=== PATIENT | female | born 1970 | race Caucasian/White ===

== ENCOUNTER 2016-09-06 23:50 | Inpatient (IN) | payer MEDICARE ==
--- NOTE | ~2016-09-06 | CO ---
Unit #: [id number] #: [id number] Patient: SHELDON CORDERO [id number] [address] [address] [id number] I MR#: [id number] NAME: SHELDON CORDERO ROOM: 201 Age: 45 Sex: F Admission Date: 09/07/2016 : 1970 Attending Physician: Juli Ojeda M.D. Primary Care Physician: No Primary Care Physician Consultation Date: 09/07/2016 CONSULTATION REPORT REASON FOR CONSULT Diabetic ketoacidosis. HISTORY OF PRESENT ILLNESS This is a 45-year-old female with history of type 1 diabetes mellitus for several years and history of diabetic ketoacidosis in the past. The patient reports that she has not been feeling well over the last one week, complaining of some cold symptoms and upper respiratory tract infection, possible flu. Blood sugars were running high. The patient reports she developed nausea, vomiting and unable to eat anything. She came to the emergency room where she was found to be in diabetic ketoacidosis and very tachycardic. She was started on IV fluids and insulin drip and transferred to the unit bed where the patient is currently on an insulin drip. PAST MEDICAL HISTORY 1. Type 1 diabetes mellitus, poorly controlled. 2. Diabetic peripheral neuropathy. 3. History of diabetic gastroparesis. 4. History of tobacco use. 5. Hypertension. 6. Hyperlipidemia. 7. Depression. PAST SURGICAL HISTORY Tubal ligation. MEDICATIONS 1. Levemir 20 units b.i.d. 2. NovoLog 1 unit for every 15 grams carbohydrate with meals. 3. Reglan. 4. Gabapentin. ALLERGIES Toradol, morphine. FAMILY HISTORY Negative for diabetes. SOCIAL HISTORY Smokes half pack per day. Declines alcohol or illicit drugs. REVIEW OF SYSTEMS A 12-point review of systems completed. Is remarkable for some nausea. Declines any fever, sore throat, urgency, frequency, dysuria. Please see Unit #: [id number] #: [id number] Patient: SHELDON CORDERO HPI. PHYSICAL EXAMINATION GENERAL: She is awake, alert, oriented to time, place and person. VITAL SIGNS: Her vitals are stable. Temp is 98.2, pulse 93, respirations 16, blood pressure 111/67. HEENT: EOMI. Pupils equally react to light. NECK: Supple. No thyromegaly noted. CHEST: Good air entry. No wheezing. CVS: Regular rhythm. S1 and S2. No murmurs. ABDOMEN: Soft. Nontender. Nondistended. Bowel sounds positive. EXTREMITIES: No edema, ulcers or amputations noted. NEUROLOGIC: Nonfocal. Moving all extremities. SKIN: Normal. DIAGNOSTIC STUDIES CURRENT LABS: BUN and creatinine is within normal limits. Anion gap is normal. Sodium 135. A1C is 8. ASSESSMENT 1. Diabetic ketoacidosis, which is resolved or improving. 2. Type 1 diabetes mellitus, seems to be reasonably controlled at home with A1C of 8%. 3. Insulin dependence. PLAN Will discontinue insulin drip at this point. Will start the patient on Levemir 15 units. Will give 20 units subcu one dose now, then start 15 unit subcu b.i.d. Start NovoLog 1 unit for every 50 over 150. Accu-Cheks a.c. and h.s. Advance diet as tolerated with consistent carb diet with 45 to 60 grams per meal. Thanks again for consultation. Dictated by... Nan Pat/alberto TD: 09/08/2016 10:43 JOB #: [id number] CONSULTATION REPORT X Arei Swift MD X CONSULTATION REPORT
--- NOTE | ~2016-09-06 | DS ---
Unit #: [id number] #: [id number] Patient: SHELDON CORDERO [id number] [address] [address] [id number] I MR#: [id number] NAME: SHELDON CORDERO ROOM: 201 Age: 45 Sex: F Admission Date: 09/07/2016 : 1970 Discharge Date: 09/08/2016 Attending Physician: Juli Ojeda M.D. Primary Care Physician: Primary Care Physician No DISCHARGE SUMMARY DISCHARGE DIAGNOSES 1. Recurrent diabetic ketoacidosis due to noncompliance due to financial barrier. 2. Type 1 diabetes diagnosed at the age of [age] years old. 3. Resolved hypokalemia. 4. Polycythemia due to dehydration. 5. Diabetic peripheral neuropathy. 6. Diabetic gastroparesis. 7. History of essential hypertension. Blood pressure has been stable without any antihypertensive usage. 8. History of depression currently without homicidal or suicidal ideation. 9. Chart review reveals that she has dyslipidemia. Not on statin therapy at this time. 10. Transaminitis. PROCEDURES None. CONSULTANTS Arie Swift M.D. with Endocrinology and Kemar Ulloa M.D. of Pulmonary. DIAGNOSTIC STUDIES IMAGING STUDIES: The patient had a chest x-ray on 09/07/2016, impression, no acute cardiopulmonary findings. LABORATORY RESULTS: The patient's BMP with glucose of 98, BUN 13, creatinine 0.7, sodium 132, potassium 3.7, chloride 106, CO2 of 22, calcium 7.7, phosphorus 2.1, albumin 4.3, total protein 8.6, total bilirubin is 2.0, AST 53, ALT 51. CBC with WBC 10.3, RBC 5.57, hemoglobin 17.3, hematocrit 52.5, MCV is 94.3, MCH 31.0, MCHC 33.9, RDW is 14.1, platelets 334, MPV is 8.2. HOSPITAL COURSE The patient is a 45-year-old female with past medical history of diabetes with recurrent admissions for diabetic ketoacidosis due to noncompliance due to financial barriers who presents to the emergency department due to nausea and vomiting. The patient had significant nausea and emesis at the time of evaluation and was not able to provide much history. The patient is only able to say that she has pain in the mid part of her stomach. She had noticed a high blood sugar that prior to hospitalization, but I am unsure how as that she has no glucometer at home. The patient had also started to complain of intractable nausea, vomiting, abdominal pain. She Unit #: [id number] #: [id number] Patient: SHELDON CORDERO states that she takes her insulin on the day of admission, but was not able to say what her usual blood sugar is at home. The patient did have significant polydipsia and polyuria. She had denied chest pain, shortness of breath. Denied fever or any sick contact. The patient tells me that she has medicare due to diabetes, does not home due to that she is not able to afford it. She typically is only able to get insulin filled when it is written and filled at [facility] for 5 dollars, but does not have any followup with any primary care physician to continue providing for insulin thereon after. She tells me that she only gets insulin the only way she knows by coming to the hospital. The patient was admitted under acidosis where her pH was noted to be 7.137 and her glucose was 624. She was placed on an insulin drip and was admitted to ICU. Dr. Ulloa had seen her in consultation for critical care and Dr. Swift had seen her for uncontrolled diabetes. After less than 24 hours, the patient's blood sugar had been well controlled with insulin drip and was seen by Dr. Swift who started her on subcutaneous insulin and sliding scale insulin according to amount of carbs eaten. She had tolerated clear liquids well and at that time of my assessment, she had in a regular. She still has persistent nausea, but had resolved the vomiting for more than 24 hours. It was felt the patient is stable at this time for discharge. The patient was seen in consultation with clinical social work aide and spring encaser for financial barrier to her insulin usage. I am asking [facility] to come out to educate the patient on diabetic education. She will follow up with Dr. Morales, this is arranged on materials planner on 09/15/2016 at 1:00 p.m. and she is to see Dr. Swift in 3 to 4 weeks for hopefully with now primary care physician and she can have somebody to prescribe insulin and hopefully she will be compliant too with this. DISCHARGE CONDITION Stable. DISCHARGE DIET Consistent carb diet per the diabetes recommendation, 45 mg of carb per meal. ACTIVITIES Resume activities as was prior to hospitalization with ambulating everyday as tolerated. DISCHARGE MEDICATIONS Include gabapentin 300 mg orally reducing it to q.h.s. only as she has not been taking this at all and she can have this adjusted by Dr. Morales when she sees him outpatient, nicotine patch 21 mg transdermally that she can get this over the counter, insulin Levemir 15 units subcutaneously at bedtime and to hold if blood pressure less than 150, NovoLog subcutaneously prior to meals and at bedtime with 1 unit per 15 mg of carbs, Reglan 10 mg orally prior to meals and at bedtime. Prescriptions given for 2 weeks. She will continue with the [id number] diabetic multivitamin 1 capsule orally daily. Given her prescriptions for Zofran 4 mg orally every 6 hours as needed for nausea, vomiting . RECOMMENDATION Follow up with Dr. Morales to recheck her liver enzymes as she has transaminitis. I presume that this is secondary to dehydration, but she can have this reassessed with Dr. Morales and work this as outpatient. Unit #: [id number] #: [id number] Patient: SHELDON CORDERO Dictated by.Heydi. Randy Conrad PA-C for Nan Colon/melani TD: 09/10/2016 01:51 JOB #: [id number] DISCHARGE SUMMARY X X DISCHARGE SUMMARY
--- NOTE | ~2016-09-06 | DS ---
Unit #: [id number] #: [id number] Patient: SHELDON CORDERO [id number] [address] [address] [id number] I MR#: [id number] NAME: SHELDON CORDERO ROOM: 201 Age: 45 Sex: F Admission Date: 09/07/2016 : 1970 Discharge Date: 09/08/2016 Attending Physician: Juli Ojeda M.D. Primary Care Physician: Primary Care Physician No DISCHARGE SUMMARY ADDENDUM This is Randy Conrad PA-C dictating for Dr. Juli Ojeda. The patient was seen by me and discharged, was also seen by social work msw, had been set up for followup with primary care physician to ensure that she would have somebody for continuing insulin usage, but prior to getting her discharge instructions and discharge medications, her IV pain medicine was discontinued. Therefore, she left prior to getting any of her pain medicine and prior to getting her prescriptions. The patient simply say that she did not want to wait for these things and left without being actually discharged by the nurse. Dictated by... Randy Conrad PA-C for Nan Colon/melani TD: 09/11/2016 01:42 JOB #: [id number] DISCHARGE SUMMARY X X DISCHARGE SUMMARY
--- NOTE | ~2016-09-06 | A ---
[facility] DATE: 09/07/16 Patient: SHELDON CORDERO Physician: WANDA Address: [address] Room/Bed: [address], Zip: [place] [address] Admit Date: 09/07/16 Date of : [birth year] Height: 5 8 Weight: 136 62 NUTRITIONAL ASSESSMENT: REASON: Dx Admitting Dx: 45 y/o female admitted with DKA PMH: T1DM, DKA, medical non-compliance, depression, gastroparesis, HTN, HLD, peripheral neuropathy Anthropometrics: Ht: 68", Wt: 62 kg (136 lbs), BMI: 20 (normal) Labs: Na 130, K+ 7.0, Glucose 624, AST 53, ALT 51, A1C 8.0, GFR 51.9 Meds: PPI, Reglan, IVF, insulin drip, Novolin, D5, Phenergan/zofran I/O & Bowel function: LBM 09/05 Skin Integrity: Scars/tattoo noted, trace edema BLE/hands Assessment: Chart reviewed, events noted. RD assessing due to admitting dx as stated above, see PMH. Patient also has hx at [facility]. She is on room air in ICU, NPO while on insulin drip, glucose still in 600's at this time. RD previously assessed on 06/07/13 (patient had no diet questions), 11/25/15 (RD educated) and 03/09/16 (RD educated) for DKA. Patient is sleeping at time of visit to room, did not want to wake at this time. Has hx of DKA and medical non-compliance, may not be appropriate for further education but will attempt at follow-up. See RD recs below, will follow. Dx: Altered nutrition related lab values r/t medical non-compliance AEB glucose 624, A1C 8.0, DKA. Intervention: CC diet, Glucerna? Diet education? Monitoring, Evaluation and Goals: 1. Tolerance of diet advancement with minimal c/o N/V/D. 2. Prevent unintentional weight loss. 3. Improvement in lab values (glucose, lytes, AST, ALT). Monitor: Per protocol, criteria to determine if above goals met Recommendations: 1. Once medically appropriate advance PO diet to consistent carb diet. Encourage adequate [facility] DATE: 09/07/16 Patient: SHELDON CORDERO Physician: WANDA Address: [address] Room/Bed: [address] [place] [address], Zip: [place] [address] Admit Date: 09/07/16 Date of : [birth year] Height: 5 8 Weight: 136 62 oral intake, order Glucerna BID if PO intake is < 50% of meals. Control N/V prn. 2. Optimize insulin regimen to promote adequate glucose control, monitor lytes. Fluids per MD noting hyponatremia. 3. RD has provided diet education in the past, last education given on 03/09/16. Patient has hx of non-compliance but will re-offer education at follow up. RD will follow hospital course Mild-moderate nutrition risk Respectfully, Tala Bashir, ISIS, LD [employer] [facility] cc: client file
--- NOTE | ~2016-09-06 | CO ---
Unit #: [id number] #: [id number] Patient: SHELDON CORDERO [id number] [address] [place], [place] [address] [id number] I MR#: [id number] NAME: SHELDON CORDERO ROOM: 201 Age: 45 Sex: F Admission Date: 09/07/2016 : 1970 Attending Physician: Juli Ojeda M.D. Primary Care Physician: Primary Care Physician No Consultation Date: 09/07/2016 CONSULTATION REPORT REASON FOR CONSULTATION DKA, ICU. HISTORY OF PRESENT ILLNESS A 45-year-old female with diabetes and multiple episodes of DKA, was at home and developed nausea and vomiting on Wednesday. She had no known sick contacts. She had worsening nausea and vomiting, presents to the emergency room, and was found to be in DKA. She had multiple electrolyte abnormalities associated with DKA and has been placed in the ICU on insulin drip. She does feel somewhat better, but still has some mild nausea and abdominal discomfort. She had no hematemesis, melena, or hematochezia. There has been no fever. PAST MEDICAL HISTORY Remarkable for diabetes, multiple episodes of DKA, history of neuropathy, history of gastroparesis, history of hypertension, hyperlipidemia, and depression. MEDICATIONS Apparently are gabapentin, Reglan, Levemir, NovoLog insulins, and a multivitamin. She did have an insulin pump, but she states that she could not afford the tubing and she is not on an insulin pump now. ALLERGIES Morphine and Toradol. SOCIAL HISTORY She smokes. The HR said half to one pack of cigarettes a day. She told me one cigarette a day. She does not drink alcohol and does not do recreational drugs. FAMILY HISTORY No familial lung disease. REVIEW OF SYSTEMS Denies shortness of breath, wheezing, chest pain, palpitations, hematuria, dysuria, focal weakness, paresthesias, fever, chills, weight loss. Further review of systems negative or as above. PHYSICAL EXAMINATION GENERAL: Reveals a patient, who appears comfortable. VITAL SIGNS: She is afebrile. Pulse is 117, respiratory rate is 26, blood pressure is 131/72, 5 foot 8 inches, 136 pounds. HEENT: Pupils are equal, round, and reactive to light. Sclerae Unit #: [id number] #: [id number] Patient: SHELDON CORDERO anicteric. Head atraumatic. NECK: Supple. No supraclavicular or cervical adenopathy appreciated. Mucous membranes moist. CHEST: Equal breath sounds and clear. No wheeze or stridor. CARDIAC: Reveals a tachycardia, mild regular rate and rhythm. No murmur. ABDOMEN: Soft, diffusely tender. No rebound. EXTREMITIES: Reveal no clubbing, cyanosis, or edema. No calf tenderness. SKIN: Warm and dry without rash or diaphoresis. Few mild excoriations in a nonspecific pattern. NEUROLOGIC: Grossly intact. No focal motor or sensory deficits. DIAGNOSTIC STUDIES LABORATORY RESULTS: Arterial blood gas; pH is 7.13, pCO2 of 21, PO2 of 118 that was on room air. Her BUN 23, creatinine is 1.2, glucose is 624. Sodium is 130, potassium is 7.0. Hemoglobin A1c is 8. LFTs mild elevation, BHOB 5.02. White blood cell count 10, hemoglobin is 17.3, platelet count is 334. Urinalysis; glucosuria. Blood cultures performed and are pending. IMAGING STUDIES: Chest x-ray, no acute infiltrates. Prominent nipple shadows. CARDIOVASCULAR STUDIES: Rhythm strip, sinus tachycardia. IMPRESSION 1. Diabetic ketoacidosis with hyperglycemia, hyponatremia etc. 2. Nausea and vomiting, likely secondary to diabetic ketoacidosis. 3. Gastroparesis, possible some degree of gastritis. 4. Polycythemia likely secondary to volume depletion and hemoconcentration. 5. History of neuropathy. 6. History of hypertension, hyperlipidemia etc. PLAN Labs are due to be rechecked. Appropriate treatment of electrolyte abnormalities pending results. Continue insulin and IV fluids. Symptomatic treatment for her nausea and vomiting. Proton pump inhibition, antiemetics, and I will add Reglan IV until taking p.o. I suspect her nausea will improve as treatment of her diabetic ketoacidosis improves. Certainly, no smoking is a great benefit. Dictated by... Kemar Ulloa M.D. SUSHMA/melani TD: 09/07/2016 11:37 JOB #: [id number] Unit #: [id number] #: [id number] Patient: SHELDON CORDERO CONSULTATION REPORT X Kemar Ulloa MD CONSULTATION REPORT
--- NOTE | ~2016-09-06 | HP ---
Unit #: [id number] #: [id number] Patient: SHELDON CORDERO [id number] [address] [address] [id number] I MR#: [id number] NAME: SHELDON CORDERO ROOM: [facility] Age: 45 Sex: F Admission Date: 09/07/2016 : 1970 Attending Physician: Zofia Wayne M.D. Primary Care Physician: No Primary Care Physician HISTORY AND PHYSICAL CHIEF COMPLAINT Nausea and vomiting. HISTORY OF PRESENT ILLNESS Ms. Cordero is a 45-year-old female with a history of poorly controlled diabetes and recurrent admissions for DKA, who presents to the emergency department with nausea, vomiting. I will note, patient is having some significant nausea and emesis when I am in the room and really doesn't provide much history. Just states that her stomach hurts and she can't stop vomiting. Per record review, the patient started noticing some reported elevated blood sugar yesterday. She also started complaining of intractable nausea, vomiting and abdominal pain. She states she has not taken her insulin today. She cannot tell me what her blood sugar was at home. She simply states that the middle portion of her stomach hurts. She denies any bloody emesis. She does endorse some polydipsia and polyuria. She denies any chest pain or shortness of breath. She denies any fevers, she denies any sick contacts. Upon presentation to the emergency department, patient was tachycardic with a heart rate of 123 but vital signs were otherwise normal. Glucose upon presentation on BMP is elevated at 317. However, patient is found to have a mild anion gap of 16. She received 2 L of normal saline IV in the emergency department, 1 mg Dilaudid, 12.5 mg of Phenergan and is subsequently being admitted for DKA. PAST MEDICAL HISTORY 1. Diabetes mellitus type 1, poorly controlled. Last hemoglobin A1c was 8.9 in June 2016. 2. Diabetic peripheral neuropathy. 3. Diabetic gastroparesis. 4. Tobaccoism. 5. History of medical noncompliance. 6. Hypertension. 7. Hyperlipidemia. 8. Depression. PAST SURGICAL HISTORY 1. Tubal ligation. 2. Insulin pump placement with reported subsequent removal. She really doesn't provide much history to me now whether she currently has an insulin pump or not. MEDICATIONS Home medications include: Unit #: [id number] #: [id number] Patient: SHELDON CORDERO 1. Gabapentin. 2. Reglan. 3. Levemir. 4. NovoLog. 5. Multivitamin. However, doses of medications are unavailable. The patient does get her prescriptions at [facility]. ALLERGIES Include Toradol and morphine. FAMILY HISTORY Per chart review, is negative for diabetes. SOCIAL HISTORY Patient smokes a half to one pack of cigarettes per day. She denies alcohol or illicit drug use. REVIEW OF SYSTEMS The patient simply states she has nausea and vomiting. Otherwise, really will not answer any review of systems for me. PHYSICAL EXAMINATION VITAL SIGNS: Temperature 98.3, blood pressure 115/75, pulse rate 123, respiratory rate 24. Oxygen saturation is in the 90s on room air. GENERAL: The patient is awake, she is alert. She does appear quite uncomfortable and won't provide much history. HEENT: Pupils equally round, reactive to light bilaterally. Anicteric sclerae. No conjunctival pallor. Oropharynx with dry mucous membranes. No erythema or exudate. NECK: Supple. No lymphadenopathy, no thyromegaly, no JVD. HEART: Tachycardic but regular rhythm without murmur, rub or gallop. LUNGS: Clear to auscultation bilaterally without wheezes, rhonchi or crackles. ABDOMEN: Soft. It is tender diffusely without guarding or rebound. Nondistended. Positive bowel sounds. EXTREMITIES: No cyanosis, clubbing, or edema. Pedal pulses 2/4. SKIN: Warm, moist. It is without rash. There are no wounds noted on the feet. MUSCULOSKELETAL: No significant joint abnormalities on exam. No erythema or warm. NEUROLOGIC: Cranial nerves II-XII intact. Sensation, strength and deep tendon reflexes grossly appear normal. PSYCHIATRIC: Difficult to determine given patient appears ill but perhaps a bit avoidant. Affect appears flat but, again, she doesn't feel well. DIAGNOSTIC STUDIES LABORATORY: Blood work done in the emergency department reveals a white blood cell count of 10.3, hemoglobin 17.3, platelet count of 334,000. Sodium 132, potassium 5.5, chloride 101, bicarb 15, BUN 18, creatinine 1.0, glucose of 317. Calculated anion gap is 16. AST mildly elevated at 53, ALT mildly elevated at 51. Alkaline phos. 135. Albumin is normal at 4.3. Lipase is normal at 14. Urinalysis reveals greater than 1000 glucose. test is negative. Unit #: [id number] #: [id number] Patient: SHELDON CORDERO EKG and chest x-ray are currently pending. ASSESSMENT 1. Recurrent diabetic ketoacidosis. 2. Diabetes mellitus type 1, uncontrolled with last hemoglobin A1c of 8.9 in June 2016. 3. Hyperkalemia. 4. Polycythemia secondary to dehydration. 5. Diabetic peripheral neuropathy. 6. Diabetic gastroparesis. 7. History of hypertension. 8. Depression. 9. Hyperlipidemia. 10. Transaminitis. PLAN 1. Will admit patient to ICU. Will initiate DKA protocol including insulin drip and IV fluids. I will consult Dr. Swift given he has seen the patient in the past. 2. Will recheck potassium level at 5 a.m. and treat if necessary. Anticipate potassium will decrease with hydration and she may require a K mag protocol. 3. Will check magnesium and phosphorous on blood in lab and replace if necessary. 4. Will keep her NPO with ice chips sparingly for now. 5. Will follow up polycythemia. That should correct with IV hydration. 6. Will follow up mild transaminitis. 7. Nicotine patch for tobacco use. 8. DVT and GI prophylaxis. Dictated by Zofia Wayne M.D. JEANCARLOS/jeremiah TD: 09/07/2016 06:45 JOB #: [id number] HISTORY AND PHYSICAL X Zofia Wayne MD X HISTORY AND PHYSICAL
--- NOTE | ~2016-09-06 | CR72 ---
[facility] A Service of [facility] RADIOLOGY TEXT RESULTS PATIENT: SHELDON CORDERO LOCATION: [address] : [birth year] UNIT #: [id number] AGE: [address]: Juli Ojeda MD SEX: F ORDER DR: [id number] [facility] [address] [facility]. [place], [place] [address] [id number] I MR#: [id number] Acc #: [id number] NAME: SHELDON CORDERO : 1970 SEX: F STUDY DATE/TIME: 09/07/2016 5:02 UNIT: [facility] ROOM: [facility] STUDY DESCRIPTION: CR Chest Single View Portable Attending Physician: Juli Ojeda M.D. Ordering Physician: Zofia Wayne M.D. Primary Care Physician: Primary Care Physician No MEDICAL IMAGING REPORT This report is preliminary unless electronic signature is present EXAM AP portable chest 09/07/2016 HISTORY Diabetic ketoacidosis, nausea, vomiting, shortness of breath, weakness. Symptoms present for 1 week. Previous smoking history. COMPARISON PA and lateral chest radiograph 07/23/2016. FINDINGS No acute airspace disease. Prominent nipple shadows incidentally noted. Heart size within normal limits. No pleural effusion or pneumothorax. IMPRESSION No acute cardiopulmonary findings. Dictated by... Diann Palacios M.D. THIS IS AN ELECTRONICALLY VERIFIED REPORT Diann Palacios M.D. at 09/07/2016 10:02 PM [facility]/lisa TD: 09/07/2016 08:43 JOB #: [id number] MEDICAL IMAGING REPORT COPY
[~2016-09-06 23:50] MED LIST: ACETAMINOPHEN PO; CYMBALTA PO; DEXILANT PO; DIABETIC VITAM1 EACH PO; EFFEXOR XR150 MG PO; FLEXERIL10 MG PO; GABAPENTIN400 M2 PO; GABAPENTIN400 MG PO; GABAPENTIN800 MG PO; HUMAPEN LUXURA1 BOX SUBQ; IBUPROFEN100 MG/52 PO; INSULIN PUMP R1 EACH MC; LEVEMIR SUBQ; LEXAPRO PO; LISINOPRIL20 MG PO; MAGIC MOUTHWAS PO; NEURONTIN800 MG PO; NOVOLIN R100 UNITS/ SUBQ; NOVOLOG FL100 UNIT/1 SQ; NOVOLOG100 U/ML; NOVOLOG100 U/ML SQ; NOVOLOG100 U/ML SUBQ; NOVOLOG100 UNITS/; PRAVACHOL PO; PRAVASTATIN SOD20 MG PO; REGLAN PO; REGLAN10 MG PO; ZOCOR20 MG PO
[2016-09-07 00:39] LABS: BASOPHIL# 0.1 X10e3 (0-0.3); BASOPHIL% 1.1 % (0-2.5); EOSINOPHIL% 0.1 % (0.0-7.0); HEMATOCRIT 52.5 % (35.0-45.0); HEMOGLOBIN 17.3 gm/dL (12.0-16.0); LYMPHOCYTE# 1.5 X10e3 (1.0-3.5); LYMPHOCYTE% 14.5 % (17.0-45.0); MEAN CELL VOLUME 94.3 FL (83-96); MEAN CORPUSCULAR HGB CONC 32.9 g/dL (30-36); MEAN PLATELET VOLUME 8.2 FL (6.5-11.5); MONOCYTE# 0.9 X10e3 (0-1.0); MONOCYTE% 8.7 % (3.0-12.0); NEUTROPHIL# 7.8 X10e3 (1.5-7.1); NEUTROPHIL% 75.6 % (40-75); PLATELET COUNT 334 X10e3 (140-420); RED BLOOD COUNT 5.57 X10e (3.90-5.30); RED CELL DISTRIBUTION WIDTH 14.1 % (11.0-15.5); WHITE BLOOD COUNT 10.3 X10e3 (4.0-10.5)
[2016-09-07 00:41] LABS: DIFF IND NO
[2016-09-07 01:20] LABS: ALBUMIN SERUM 4.3 g/dL (3.5-5.0); ALKALINE PHOSPHATASE 135 U/L (32-92); ALT (SGPT) 51 U/L (10-40); AST (SGOT) 53 U/L (10-42); BILIRUBIN, DIRECT 0.2 mg/dL (0.0-0.2); BILIRUBIN,INDIRECT 1.8 mg/dL (0.0-0.9); BLOOD UREA NITROGEN 18 mg/dL (9-23); CALCIUM SERUM 9.5 mg/dL (8.4-10.2); CARBON DIOXIDE 15 mmol/L (22-31); CHLORIDE 101 mmol/L (100-111); GLOM FILT RATE Estimated ABOVE60 mL/min (>60); GLUCOSE FASTING 317 mg/dL (70-110); LIPASE 14 U/L (22-51); PROTEIN TOTAL SERUM 8.6 g/dL (6.0-8.3); SODIUM 132 mmol/L (135-145)
[2016-09-07 01:29] LABS: POTASSIUM 5.5 mmol/L (3.5-5.1)
[2016-09-07 03:30] LABS: URINE SOURCE CLEAN CATCH
[2016-09-07 03:36] LABS: URINE APPEARANCE CLEAR; URINE BILIRUBIN NEG (NEG); URINE BLOOD NEG (NEG); URINE COLOR YELLOW; URINE GLUCOSE >1000 MG/DL (NEG); URINE KETONE 3+ (NEG); URINE LEUKOCYTE ESTERASE NEG (NEG); URINE NITRATE NEG (NEG); URINE PROTEIN NEG (NEG); URINE SPECIFIC GRAVITY 1.034 (1.003-1.035); URINE UROBILINOGEN 0.2 MG/DL (NEG)
[2016-09-07 03:41] LABS: CULTURE INDICATED? NO
[2016-09-07 05:10] LABS: ARTERIAL BLOOD GAS CARBOXY HB 0.6 %sat (0.0-9.0); ARTERIAL BLOOD GAS HCO3 7.4 mmol/L; ARTERIAL BLOOD GAS PCO2 21.8 mmHg (35.0-45.0)
[2016-09-07 05:12] LABS: ARTERIAL BLOOD GAS ALLEN TEST NORMAL; ARTERIAL BLOOD GAS ART SITE RIGHT RADIAL; ARTERIAL BLOOD GAS DELIVERY ROOM AIR; ARTERIAL BLOOD GAS pH 7.137 (7.350-7.450); ARTERIAL DRAW? YES
[2016-09-07 06:49] LABS: BUN/CREATININE RATIO 19.16; CALCIUM SERUM 8.8 mg/dL (8.4-10.2); CREATININE SERUM 1.2 mg/dL (0.6-1.4); GLOM FILT RATE Estimated 51.9 mL/min (>60); MAGNESIUM 2.2 mg/dL (1.6-3.0); PHOSPHOROUS 4.6 mg/dL (2.5-4.6)
[2016-09-07 10:52] LABS: BLOOD UREA NITROGEN 20 mg/dL (9-23); BUN/CREATININE RATIO 22.22; CALCIUM SERUM 8.8 mg/dL (8.4-10.2); CARBON DIOXIDE 12 mmol/L (22-31); CHLORIDE 108 mmol/L (100-111); CREATININE SERUM 0.9 mg/dL (0.6-1.4); GLOM FILT RATE Estimated ABOVE60 mL/min (>60); GLUCOSE FASTING 214 mg/dL (70-110); SODIUM 136 mmol/L (135-145)
[2016-09-07 10:53] LABS: POTASSIUM 4.8 mmol/L (3.5-5.1)
[2016-09-07 17:09] LABS: BLOOD UREA NITROGEN 17 mg/dL (9-23); BUN/CREATININE RATIO 21.25; CALCIUM SERUM 8.2 mg/dL (8.4-10.2); CARBON DIOXIDE 19 mmol/L (22-31); CHLORIDE 111 mmol/L (100-111); CREATININE SERUM 0.8 mg/dL (0.6-1.4); GLOM FILT RATE Estimated ABOVE60 mL/min (>60); GLUCOSE FASTING 96 mg/dL (70-110); POTASSIUM 4.4 mmol/L (3.5-5.1); SODIUM 135 mmol/L (135-145)
[2016-09-08 03:46] LABS: BLOOD UREA NITROGEN 13 mg/dL (9-23); BUN/CREATININE RATIO 18.57; CALCIUM SERUM 7.7 mg/dL (8.4-10.2); CARBON DIOXIDE 22 mmol/L (22-31); CHLORIDE 106 mmol/L (100-111); CREATININE SERUM 0.7 mg/dL (0.6-1.4); GLOM FILT RATE Estimated ABOVE60 mL/min (>60); GLUCOSE FASTING 90 mg/dL (70-110); POTASSIUM 3.7 mmol/L (3.5-5.1); SODIUM 132 mmol/L (135-145)
== END 2016-09-08 14:46 | disposition left against medical advice (07) | DRG 639 ==
LOC: CED 23:50 → CEDOF 09-07 04:20 → CICCU2 09-07 06:33 → C2A 09-08 00:13
PROVIDERS: Emergency Medicine; Internal Medicine
DX: E10.10 Type 1 diabetes mellitus with ketoacidosis without coma (principal); K31.84 Gastroparesis; D75.1 Secondary polycythemia; E83.52 Hypercalcemia; E10.42 Type 1 diabetes mellitus with diabetic polyneuropathy; E86.0 Dehydration; I10 Essential (primary) hypertension; Z79.4 Long term (current) use of insulin; E87.6 Hypokalemia; R74.0 Nonspecific elevation of levels of transaminase and lactic acid dehydrogenase [LDH]; Z91.14 Patient's other noncompliance with medication regimen; F17.200 Nicotine dependence, unspecified, uncomplicated; M79.7 Fibromyalgia; F32.9 Major depressive disorder, single episode, unspecified; E10.43 Type 1 diabetes mellitus with diabetic autonomic (poly)neuropathy
CPT/HCPCS: 36415; 36600; 51701; 71010; 80048; 80076; 81003; 82150; 82803; 82947; 83036; 83690; 83735; 84100; 84484; 84703; 85025; 87040; 94760; 96374; 96375; 99285; C9113; J1170; J1650; J1815; J2405; J2550; J2765

== ENCOUNTER 2016-12-09 17:11 | Inpatient (IN) | payer MEDICARE ==
--- NOTE | ~2016-12-09 | A ---
[facility] Nutrition Therapy DATE: 12/10/16 Patient: SHELDON CORDERO Physician: ELIZABETH Address: [address] Room/Bed: [address], Zip: [place] [address] Admit Date: 12/09/16 Date of : [birth year] Height: 5 8 Weight: 85 39 NUTRITIONAL ASSESSMENT: REASON: Low BMI, DKA Dx: DKA PMH: DM, neuropathy, gastroparesis, HTN, HLD, depression, tobacco use, medical non-compliance Anthropometrics: ht: 5'8" wt: 85# (37 kg) bmi: 12 -Admit weight 110# (50 kg) Labs: glu 164 (605 on admit), AST 47, ALT 50, HgbA1C 9.0, Lip 15 Meds: pepcid, reglan, zofran, lovenox, novolin, NaCl, dex 5% I/O & Bowel function: 265/1000. Last BM unknown. Skin Integrity: scars BLE/Bilat hands, tattoo lower back edema: BLE 1+ Diet: Consistent carbohydrate Assessment: Chart reviewed, events noted. Ms. Cordero is a 46 y/o female admitted for DKA with h/o DM and gastroparesis. This pt has been assessed by RD during previous visits on both 06/07/13 and 09/07/16, and has been educated on DM diet on 11/25/15 and 03/09/16. The pt's serum glucose was 605 at time of admission. Pt is currently in ICU on consistent carb diet with glucose now at 164, receiving Novolin. Pt's current weight is 85#, with previous weights ranging from 110-136#. RD biomedical engineering internship attempted to speak with pt regarding weight loss and low BMI, but pt was sleeping, unable to wake during time of visit. Per RN, the pt has had some edema which may have contributed to the change in weight. It is likely that the pt's gastroparesis is contributing to weight loss. Pt has history of DKA and medical non-compliance. Will attempt diet education at follow-up. See recommendations below. RD will follow. Dx: 1) Altered nutrition related lab values r/t medical non-compliance, lifestyle AEB glucose 605, A1C 9.0, DKA 2) Unintentional weight loss r/t DKA, possibly gastroparesis AEB per [email or web address], ~25# weight loss, BMI of 12 Intervention: 1. CC diet 2. Glucerna TID [facility] Nutrition Therapy DATE: 12/10/16 Patient: SHELDON CORDERO Physician: ELIZABETH Address: [address] [facility] Room/Bed: [address], Zip: [place] [address] Admit Date: 12/09/16 Date of : [birth year] Height: 5 8 Weight: 85 39 Monitoring, Evaluation and Goals: 1. Weight; prevent further unintentional weight loss, promote gradual weight gain towards healthy BMI 2. Labs; glucose, A1C, AST, ALT 3. Oral intake; consume/tolerate >50% of meals/supplements Recommendations: 1. Glucerna shakes TID 2. Continue CC diet and encourage adequate PO intake. Add 6 small meals d/t gastroparesis. Low fat and low fiber restrictions may be indicated based on diet tolerance. 3. Continue close monitoring of glucose, A1C, and weights. 4. Will attempt diet education at follow up. RD will f/u per protocol as pt is at moderate nutritional risk. Respectfully, MAC VANCE, business development intern Ashia Bardales, RD, LD [employer] [facility] [employer] cc: client file
--- NOTE | ~2016-12-09 | HP ---
Unit #: [id number] #: [id number] Patient: SHELDON CORDERO [id number] [address] [address] [id number] P[place] MR#: [id number] NAME: SHELDON CORDERO ROOM: [address]686 Age: 46 Sex: F Admission Date: 12/09/2016 : 1970 Attending Physician: Ariadne Smith M.D. Primary Care Physician: No Primary Care Physician HISTORY AND PHYSICAL CHIEF COMPLAINT Diabetic ketoacidosis. HISTORY This 46-year-old female with IDDM, compliance issues, neuropathy, gastroparesis, is admitted for diabetic ketoacidosis. Patient received Phenergan prior to my arrival and is a poor historian. She states that she was well until two days ago when she developed nausea, vomiting, dizziness and ran out of her insulin. She presented to this emergency department tonight mildly tachycardic, in DKA with an anion gap of 21, serum glucose 605, and a pH of 7.156. In the ER she was given Zofran and ultimately Phenergan, is receiving a second bolus of normal saline and currently an insulin drip is being started. Potassium is 5.6, and therefore I have asked for one amp of bicarb to be administered. The patient has a history of recurrent DKA requiring multiple admissions. She was last admitted to this facility 09/07/2016. PAST MEDICAL HISTORY 1. IDDM since age 23, associated with peripheral neuropathy and gastroparesis. Previous hemoglobin A1C was 8.9 06/2016. Previously had an insulin pump but this was later removed. 2. Peripheral neuropathy and gastroparesis. 3. Tobacco abuse. 4. History of hypertension. 5. Hyperlipidemia. 6. Depression. 7. BTL. ALLERGIES Toradol and morphine. HOME MEDICATIONS Home medications are uncertain. Patient states that she ran out of her insulin yesterday and is unsure of the dose. Per discharge summary 09/08/2016 the patient was takin. Neurontin 300 mg q.h.s. 2. Levemir 15 units subcu q.h.s. 3. NovoLog 1 unit per 15 mg of carbs. 4. Reglan 10 mg a.c. and h.s. FAMILY HISTORY Diabetes. Unit #: [id number] #: [id number] Patient: SHELDON CORDERO SOCIAL HISTORY The patient states that she lives alone, smokes one-half pack per day of tobacco, does not drink alcohol. REVIEW OF SYSTEMS Difficult to obtain as patient herself is a very poor historian and mildly somnolent. PHYSICAL EXAMINATION GENERAL: A somewhat ill-appearing 46-year-old female who is mildly somnolent after receiving Phenergan. VITAL SIGNS: Temperature has not yet been obtained, pulse 107, respirations 20, blood pressure 112/81, O2 saturation 98% on room air. HEENT: Eyes PERRLAA, extraocular muscles are intact. Pharynx is benign. NECK: Supple, without adenopathy or thyromegaly. CHEST: Clear. CARDIAC: Normal S1 and S2, without S3, S4 or murmur. ABDOMEN: Bowel sounds are hypoactive. Patient has generalized abdominal tenderness without rebound or guarding. No hepatosplenomegaly or masses. EXTREMITIES: With some mild swelling of the hands and feet bilaterally. Pedal pulses are somewhat diminished. No ulcerations over the feet. There is some slight mottling also over extremities. NEUROLOGIC EXAM: Patient is somnolent but able to be aroused. Her cranial nerves are intact. She has equal strength throughout. DIAGNOSTIC STUDIES ADMISSION LABORATORY: Hematocrit is 50.4, white blood count and platelet count normal, MCV is 97.8. SMA-7: Glucose 605, sodium 129, which corrects closer to 138, potassium 5.6, chloride 95, CO2 13 with an anion gap of 21, BHOB 7.41. Urine positive glucose. ABG pH 7.156, pCO2 25.5, pO2 104, O2 saturation 96.5% on room air. ASSESSMENT 1. Diabetic ketoacidosis, patient recently ran out of her insulin. 2. Abdominal tenderness probably related to diabetic ketoacidosis but will check LFTs, amylase and lipase. If not improving with resolution of diabetic ketoacidosis will work up further. 3. Insulin dependent diabetes mellitus with gastroparesis and peripheral neuropathy. 4. Compliance issues. 5. History of hypertension. 6. Tobacco abuse. PLANS 1. Aggressive IV fluids. 2. Insulin drip and monitor electrolytes carefully. 3. One dose of IV bicarb given hyperkalemia. 4. DVT and gastritis prophylaxis. 5. Reglan and Zofran. 6. Obtain chest x-ray, EKG, LFTs, amylase, lipase, hemoglobin A1C, cardiac enzymes and blood cultures. 7. Check temperature. 8. Long-term prognosis is guarded given the patient's noncompliance. Critical care time spent in evaluating this patient was 35 minutes. Unit #: [id number] #: [id number] Patient: SHELDON CORDERO Dictated by Ariadne Smith M.D. AML/cf TD: 12/09/2016 22:30 JOB #: [id number] HISTORY AND PHYSICAL Page 1 of 1 X Ariadne Smith MD X HISTORY AND PHYSICAL
--- NOTE | ~2016-12-09 | DS ---
Unit #: [id number] #: [id number] Patient: SHELDON CORDERO [id number] [address] [address] [id number] I MR#: [id number] NAME: SHELDON CORDERO ROOM: [facility] Age: 46 Sex: F Admission Date: 12/09/2016 : 1970 Discharge Date: 12/11/2016 Attending Physician: Irena Abarca M.D. Primary Care Physician: No Primary Care Physician DISCHARGE SUMMARY DISCHARGE DIAGNOSES 1. Diabetic ketoacidosis. 2. Diabetes mellitus type 1 with gastroparesis and peripheral neuropathy. 3. Noncompliance with followup. Patient does not see a family doctor. She comes to ER for her prescriptions, and she had multiple admissions in the past. 4. History of hypertension. 5. Smoking. 6. Hypokalemia. 7. Hypophosphatemia. 8. Underweight. BMI of 17. 9. Hyperlipidemia. 10. Depression. CONSULTATIONS None. PROCEDURES None. DIAGNOSTIC TESTING LAB DATA: Glucose 105, sodium 135, potassium 3.4, creatinine 0.6, phosphorous 1.8, magnesium 1.8. WBC 11.2, hemoglobin 12.6, platelets 208. ALLERGIES Morphine, ketorolac. DISCHARGE MEDICATIONS 1. Levemir 15 units subcu at bedtime. 2. NovoLog low-dose sliding scale a.c. and h.s. 3. Reglan 5 mg p.o. q.6. 4. Neutra-Phos 1 packet p.o. b.i.d. HOSPITALIZATION COURSE A 46 year old admitted because of high sugars since she ran out of her insulin. She does not have a family physician. She always comes to the ER. Here, she was found to have DKA, admitted in ICU. Insulin protocol has been started. Currently DKA resolved. She is tolerating diet okay. NovoLog and Levemir have been started. I talked with her at length regarding the compliance with her medications. I told her she needs to find a family doctor. I am going to ask the case planner to help her with medications and followup. Unit #: [id number] #: [id number] Patient: SHELDON CORDERO Underweight. Continue with high calorie diet. Hypokalemia and hypophosphatemia. Started on Neutra-Phos. I gave prescription. Diabetes mellitus type 1 with peripheral neuropathy and gastroparesis. Continue with Reglan. I gave prescription for a few days. She needs to see a family doctor for followup. High risk of readmission because noncompliance with followup. DISCHARGE PLAN 1. Follow with family physician in 1 week's time. 2. Discharge home. Dictated by... Nan Landry/alberto TD: 12/11/2016 10:16 JOB #: [id number] DISCHARGE SUMMARY Page 1 of 1 X Irena Abarca MD X DISCHARGE SUMMARY
--- NOTE | ~2016-12-09 | EKG ---
PATIENT: SHELDON CORDERO UNIT #: [id number] Ventricular Rate: 107 BPM Atrial Rate: 107 BPM P-R Interval: 134 ms QRS Duration: 86 ms Q-T Interval: 348 ms QTC Calculation(Bezet): 464 ms P [place]: 74 degrees Calculated R [place]: 70 degrees Calculated T [place]: 48 degrees Diagnosis Line: Sinus tachycardia Diagnosis Line: Biatrial enlargement Diagnosis Line: Abnormal ECG Diagnosis Line: When compared with ECG of 22-JUL-2016 07:49, Diagnosis Line: No significant change was found Diagnosis Line: Confirmed by BEE PINTO MD ([id number]) on Diagnosis Line: 12/11/2016 3:47:51 PM INTERPRETING MD: WANDER
--- NOTE | ~2016-12-09 | CR72 ---
[facility] A Service of [facility] & [facility] RADIOLOGY TEXT RESULTS PATIENT: SHELDON CORDERO LOCATION: [address]- : [birth year] UNIT #: [id number] AGE: [address]: Irena Abarca MD SEX: F ORDER DR: [id number] [facility] [address] [place], [place] [address] [id number] I MR#: [id number] Acc #: [id number] NAME: SHELDON CORDERO : 1970 SEX: F STUDY DATE/TIME: 12/09/2016 21:58 UNIT: [facility] ROOM: [facility] STUDY DESCRIPTION: CR Chest Single View Portable Attending Physician: Ariadne Smith M.D. Ordering Physician: Ariadne Smith M.D. MEDICAL IMAGING REPORT This report is preliminary unless electronic signature is present EXAM Frontal chest, 12/09/2016 INDICATIONS A 46-year-old female with diabetic ketoacidosis, shortness of air and weakness. Symptoms began today. TECHNIQUE Frontal chest compared with 09/07/2016 FINDINGS Cardiac silhouette is within normal limits. The lungs are hyperinflated. There is biapical pleural thickening/scarring. No effusion, dense consolidation or pneumothorax. Nipple shadows project over the lower lung zones bilaterally. IMPRESSION Pulmonary hyperinflation and chronic lung changes. No definite superimposed active disease. Dictated by... Karson Perez M.D. THIS IS AN ELECTRONICALLY VERIFIED REPORT Karson Perez M.D. at 12/10/2016 2:36 PM Kayley TD: 12/09/2016 22:36 JOB #: [id number] MEDICAL IMAGING REPORT Page 1 of 1 COPY
[2016-12-09 18:05] LABS: BASOPHIL# 0.1 X10e3 (0-0.3); EOSINOPHIL% 0.2 % (0.0-7.0); HEMATOCRIT 50.4 % (35.0-45.0); HEMOGLOBIN 16.2 gm/dL (12.0-16.0); LYMPHOCYTE# 1.9 X10e3 (1.0-3.5); MEAN CELL VOLUME 97.8 FL (83-96); MEAN CORPUSCULAR HEMOGLOBIN 31.5 PG (28-34); MEAN CORPUSCULAR HGB CONC 32.2 g/dL (30-36); MEAN PLATELET VOLUME 8.5 FL (6.5-11.5); MONOCYTE# 0.5 X10e3 (0-1.0); MONOCYTE% 5.9 % (3.0-12.0); NEUTROPHIL# 6.8 X10e3 (1.5-7.1); NEUTROPHIL% 72.9 % (40-75); PLATELET COUNT 274 X10e3 (140-420); RED BLOOD COUNT 5.16 X10e (3.90-5.30); RED CELL DISTRIBUTION WIDTH 14.1 % (11.0-15.5); WHITE BLOOD COUNT 9.4 X10e3 (4.0-10.5)
[2016-12-09 18:12] LABS: DIFF IND NO
[2016-12-09 18:19] LABS: URINE SOURCE CLEAN CATCH
[2016-12-09 18:26] LABS: URINE APPEARANCE CLEAR; URINE BILIRUBIN NEG (NEG); URINE BLOOD NEG (NEG); URINE COLOR YELLOW; URINE GLUCOSE >1000 MG/DL (NEG); URINE KETONE 3+ (NEG); URINE LEUKOCYTE ESTERASE NEG (NEG); URINE NITRATE NEG (NEG); URINE PROTEIN NEG (NEG); URINE SPECIFIC GRAVITY 1.033 (1.003-1.035); URINE UROBILINOGEN 0.2 MG/DL (NEG)
[2016-12-09 18:36] LABS: AMPHETAMINE POS (NEG); BARBITURATES NEG (NEG); BENZODIAZEPINES NEG (NEG); COCAINE NEG (NEG); MARIJUANA NEG (NEG); OPIATES NEG (NEG); TRICYCLIC ANTIDEPRESSANTS NEG (NEG); U METHADONE NEG (NEG)
[2016-12-09 18:43] LABS: BETA HYDROXYBUTYRATE 7.41 MMOL/L (0.02-0.27); CALCIUM SERUM 9.1 mg/dL (8.4-10.2)
[2016-12-09 18:44] LABS: CULTURE INDICATED? NO
[2016-12-09 18:52] LABS: POTASSIUM 5.6 mmol/L (3.5-5.1)
[2016-12-09 20:34] LABS: ARTERIAL BLD GAS O2 SATURATION 96.5 % (90.0-100.0); ARTERIAL BLOOD GAS ALLEN TEST NORMAL; ARTERIAL BLOOD GAS ART SITE RIGHT RADIAL; ARTERIAL BLOOD GAS CARBOXY HB 0.9 %sat (0.0-9.0); ARTERIAL BLOOD GAS MET HB 0.9 %sat (0.0-2.0); ARTERIAL BLOOD GAS PCO2 25.5 mmHg (35.0-45.0); ARTERIAL BLOOD GAS pH 7.156 (7.350-7.450); ARTERIAL DRAW? YES
[2016-12-09 23:07] LABS: ALBUMIN SERUM 2.7 g/dL (3.5-5.0); BUN/CREATININE RATIO 18.75; CREATININE SERUM 0.8 mg/dL (0.6-1.4); GLOM FILT RATE Estimated 89.1 mL/min (>60); POTASSIUM 4.3 mmol/L (3.5-5.1)
[2016-12-09 23:08] LABS: CALCIUM SERUM 6.5 mg/dL (8.4-10.2)
[2016-12-10 00:47] LABS: CALCIUM SERUM 8.4 mg/dL (8.4-10.2); CREATININE SERUM 1.2 mg/dL (0.6-1.4); GLOM FILT RATE Estimated 54.5 mL/min (>60); POTASSIUM 5.1 mmol/L (3.5-5.1)
[2016-12-10 04:35] LABS: BASOPHIL# 0.1 X10e3 (0-0.3); BASOPHIL% 0.6 % (0-2.5); HEMATOCRIT 44.2 % (35.0-45.0); HEMOGLOBIN 14.4 gm/dL (12.0-16.0); LYMPHOCYTE# 2.1 X10e3 (1.0-3.5); LYMPHOCYTE% 14.4 % (17.0-45.0); MEAN CORPUSCULAR HEMOGLOBIN 30.8 PG (28-34); MEAN CORPUSCULAR HGB CONC 32.5 g/dL (30-36); MONOCYTE# 0.9 X10e3 (0-1.0); MONOCYTE% 6.3 % (3.0-12.0); NEUTROPHIL# 11.3 X10e3 (1.5-7.1); NEUTROPHIL% 78.7 % (40-75); PLATELET COUNT 264 X10e3 (140-420); RED BLOOD COUNT 4.66 X10e (3.90-5.30)
[2016-12-10 04:37] LABS: DIFF IND NO; WHITE BLOOD COUNT 14.3 X10e3 (4.0-10.5)
[2016-12-10 05:00] LABS: ALBUMIN SERUM 3.5 g/dL (3.5-5.0); BILIRUBIN,TOTAL 0.8 mg/dL (0.2-2.0); BUN/CREATININE RATIO 17.5; CALCIUM SERUM 8.4 mg/dL (8.4-10.2); CREATININE SERUM 0.8 mg/dL (0.6-1.4); GLOM FILT RATE Estimated 89.1 mL/min (>60); MAGNESIUM 1.9 mg/dL (1.6-3.0); POTASSIUM 4.7 mmol/L (3.5-5.1); PROTEIN TOTAL SERUM 6.7 g/dL (6.0-8.3)
[2016-12-10 10:59] LABS: BUN/CREATININE RATIO 14.44; CALCIUM SERUM 8.1 mg/dL (8.4-10.2); CREATININE SERUM 0.9 mg/dL (0.6-1.4); GLOM FILT RATE Estimated 77.3 mL/min (>60); POTASSIUM 3.7 mmol/L (3.5-5.1)
[2016-12-10 19:56] LABS: BUN/CREATININE RATIO 14.28; CALCIUM SERUM 7.8 mg/dL (8.4-10.2); CREATININE SERUM 0.7 mg/dL (0.6-1.4); GLOM FILT RATE Estimated 104.6 mL/min (>60); PHOSPHOROUS 1.1 mg/dL (2.5-4.6)
[2016-12-11 03:19] LABS: BASOPHIL# 0.1 X10e3 (0-0.3); BASOPHIL% 1.3 % (0-2.5); DIFF IND NO; EOSINOPHIL# 0.1 X10e3 (0-0.7); EOSINOPHIL% 0.7 % (0.0-7.0); HEMOGLOBIN 12.6 gm/dL (12.0-16.0); LYMPHOCYTE# 2.5 X10e3 (1.0-3.5); MEAN CORPUSCULAR HEMOGLOBIN 30.8 PG (28-34); MEAN CORPUSCULAR HGB CONC 32.4 g/dL (30-36); MEAN PLATELET VOLUME 7.7 FL (6.5-11.5); MONOCYTE# 0.6 X10e3 (0-1.0); MONOCYTE% 5.3 % (3.0-12.0); NEUTROPHIL# 7.9 X10e3 (1.5-7.1); NEUTROPHIL% 70.7 % (40-75); PLATELET COUNT 208 X10e3 (140-420); RED CELL DISTRIBUTION WIDTH 14.2 % (11.0-15.5); WHITE BLOOD COUNT 11.2 X10e3 (4.0-10.5)
[2016-12-11 03:41] LABS: BILIRUBIN,TOTAL 1.2 mg/dL (0.2-2.0); BUN/CREATININE RATIO 11.66; CALCIUM SERUM 7.7 mg/dL (8.4-10.2); CREATININE SERUM 0.6 mg/dL (0.6-1.4); GLOM FILT RATE Estimated 110.1 mL/min (>60); MAGNESIUM 1.8 mg/dL (1.6-3.0); PHOSPHOROUS 1.8 mg/dL (2.5-4.6); POTASSIUM 3.4 mmol/L (3.5-5.1); PROTEIN TOTAL SERUM 5.7 g/dL (6.0-8.3)
== END 2016-12-11 11:00 | disposition home or self-care (01) | DRG 638 ==
LOC: CED 17:11 → CEDOF 20:56 → CICCU3 12-10 02:01 → CEDOF 12-10 02:01 → CICCU3 12-10 02:01
PROVIDERS: Emergency Medicine; Internal Medicine
DX: E10.10 Type 1 diabetes mellitus with ketoacidosis without coma (principal); Z68.1 Body mass index [BMI] 19.9 or less, adult; K31.84 Gastroparesis; E10.42 Type 1 diabetes mellitus with diabetic polyneuropathy; E83.39 Other disorders of phosphorus metabolism; E10.43 Type 1 diabetes mellitus with diabetic autonomic (poly)neuropathy; Z79.4 Long term (current) use of insulin; Z91.19 Patient's noncompliance with other medical treatment and regimen; I10 Essential (primary) hypertension; F17.210 Nicotine dependence, cigarettes, uncomplicated; E87.6 Hypokalemia; E78.5 Hyperlipidemia, unspecified; F32.9 Major depressive disorder, single episode, unspecified; R63.6 Underweight
CPT/HCPCS: 36600; 71010; 80048; 80053; 80307; 81003; 82010; 82150; 82550; 82803; 82947; 83036; 83690; 83735; 84100; 84484; 84703; 85025; 87040; 93005; 96361; 96374; 99291; J1650; J1815; J2405; J2550; J2765; J3475

== ENCOUNTER 2017-03-15 19:13 | Emergency (ER) | payer MEDICARE ==
[~2017-03-15] VITALS: Ht 167.6 cm; Wt 54.4 kg
--- NOTE | ~2017-03-15 | EKG ---
PATIENT: SHELDON CORDERO UNIT #: [id number] Ventricular Rate: 79 BPM Atrial Rate: 79 BPM P-R Interval: 140 ms QRS Duration: 88 ms Q-T Interval: 388 ms QTC Calculation(Bezet): 444 ms P [place]: 43 degrees Calculated R [place]: 67 degrees Calculated T [place]: 53 degrees Diagnosis Line: Normal sinus rhythm Diagnosis Line: Normal ECG Diagnosis Line: When compared with ECG of 09-DEC-2016 22:57, Diagnosis Line: Nonspecific T wave abnormality now evident in Diagnosis Line: Anterior leads Diagnosis Line: Confirmed by EDDY PATEL MD ([id number]) on Diagnosis Line: 03/17/2017 11:19:13 AM INTERPRETING MD: AMANDA NOBLE
[2017-03-15] MEDS ORDERED: HUMALOG100 UNIT/1 (19:17)
[2017-03-15] MEDS ORDERED: LEVEMIR (19:17)
[2017-03-15 20:05] LABS: HEMATOCRIT 41.7 % (35.0-45.0); HEMOGLOBIN 13.7 gm/dL (12.0-16.0); MEAN CELL VOLUME 94.7 FL (83-96); MEAN CORPUSCULAR HEMOGLOBIN 31.2 PG (28-34); MEAN CORPUSCULAR HGB CONC 32.9 g/dL (30-36); MEAN PLATELET VOLUME 8.2 FL (6.5-11.5); RED BLOOD COUNT 4.4 X10e (3.90-5.30); RED CELL DISTRIBUTION WIDTH 13.3 % (11.0-15.5); WHITE BLOOD COUNT 6.1 X10e3 (4.0-10.5)
[2017-03-15 20:13] LABS: ACETONE, SERUM 0 MG/DL (0-0); BETA-HCG SCREEN-PREGNANCY NEG
[2017-03-15 20:20] LABS: ALBUMIN SERUM 3.7 g/dL (3.5-5.0); BILIRUBIN,TOTAL 0.5 mg/dL (0.2-2.0); CALCIUM SERUM 8.4 mg/dL (8.4-10.2); CREATININE SERUM 0.7 mg/dL (0.6-1.4); GLOM FILT RATE Estimated 104.6 mL/min (>60); POTASSIUM 4.2 mmol/L (3.5-5.1)
[2017-03-15 20:30] LABS: POC - CKMB 2.2 ng/mL (0.0-7.9); POC - MYOGLOBIN 33.5 ng/mL (0.0-169.0); POC - TROPONIN <0.05 ng/mL (<=0.05)
== END 2017-03-15 21:19 | disposition home or self-care (01) ==
LOC: SED 19:13
PROVIDERS: Emergency Medicine
DX: E11.649 Type 2 diabetes mellitus with hypoglycemia without coma (principal); Z98.51 Tubal ligation status; F17.200 Nicotine dependence, unspecified, uncomplicated; Z88.5 Allergy status to narcotic agent; Z88.6 Allergy status to analgesic agent; Z79.4 Long term (current) use of insulin
CPT/HCPCS: 36415; 80053; 82010; 82553; 82947; 83874; 84484; 84703; 85027; 93005; 96361; 96374; 96375; 99285; J2765